=== PATIENT | male | born 1955 | race Caucasian/White ===

== ENCOUNTER 2023-02-24 09:26 | Day surgery (SDC) | payer OTHER ==
[2023-02-20 13:19] VITALS: BMI 32.3
[2023-02-24] MEDS ORDERED: Midazolam HCl 2 mg/2 ml Vial ONE (12:01)
[2023-02-24] MEDS ORDERED: PROPOFOL 60 ML ONE (12:02)
== END 2023-02-24 13:00 | disposition home or self-care (01) ==
LOC: CSHSDC 09:26
PROVIDERS: ATTEND Internal Medicine Gastroenterology
PROC: 0DJD8ZZ Inspection of Lower Intestinal Tract, Via Natural or Artificial Opening Endoscopic (ICD-10-PCS; principal; 2023-02-24)
DX: K63.5 Polyp of colon (principal); K52.9 Noninfective gastroenteritis and colitis, unspecified; K57.30 Diverticulosis of large intestine without perforation or abscess without bleeding; K64.9 Unspecified hemorrhoids; E11.9 Type 2 diabetes mellitus without complications; I10 Essential (primary) hypertension; E78.5 Hyperlipidemia, unspecified; Z86.010 Personal history of colon polyps
CPT/HCPCS: J2250; J2704